=== PATIENT | female | born 1945 | race Caucasian/White ===

== ENCOUNTER → 2017-02-23 | Outpatient (CLI) | payer MEDICARE | END | disposition home or self-care (01) | LOC: CFH 07:04 | PROVIDERS: ATTEND Family Medicine | DX: Z12.31 Encounter for screening mammogram for malignant neoplasm of breast (principal); E04.2 Nontoxic multinodular goiter; M81.0 Age-related osteoporosis without current pathological fracture; R10.10 Upper abdominal pain, unspecified | CPT/HCPCS: 76536; 76700; G0202; 77080 ==